=== PATIENT | female | born 1980 | race Native Hawaiian/Other Pacific Islander ===

== ENCOUNTER 2022-05-07 15:16 | Emergency (ER) | payer OTHER ==
[~2022-05-07] VITALS: Ht 165.1 cm; Wt 56.7 kg
[2022-05-07 15:53] LABS: PLATELET COUNT 195 K/uL (152-353)
[2022-05-07 16:05] LABS: POTASSIUM 4.8 mmol/L (3.6-5.2)
[2022-05-07 20:10] VITALS: BP 110/62; TEMP 98
== END 2022-05-07 20:10 | disposition short-term general hospital (02) ==
LOC: ED 15:16
PROVIDERS: Emergency Medicine
DX: N18.6 End stage renal disease (principal); Z11.52 Encounter for screening for COVID-19
CPT/HCPCS: 36415; 80053; 81000; 81025; 85027; 87635; 99284; U0003